=== PATIENT | male | born 1965 | race Hispanic/Latino ===

== ENCOUNTER 2017-10-18 12:33 | Observation (INO) | payer MEDICARE ==
[~2017-10-18] VITALS: Ht 172.7 cm; Wt 86.2 kg
[~2017-10-18 12:33] MED LIST: ACETAMINOPHEN325 M1 PO; ACETAMINOPHEN650 MG RC; DIAZEPAM5 MG PO; FOLIC ACID1 MG PO; FUROSEMIDE40 MG PO; HYDROXYZINE HCL25 MG PO; LEVOTHYROXINE50 MCG PO; OMEPRAZOLE40 MG PO; SPIRONOLACTONE25 MG PO; THIAMINE HCL100 MG PO
[2017-10-18] MEDS ORDERED: DEXTROSE 50% SYRINGE 50 ML IV PRN (12:45)
[2017-10-18] MEDS ORDERED: SODIUM CHLORIDE FLUSH 10 ML SYR INJ PRN (12:45)
[2017-10-18] MEDS ORDERED: SODIUM CHLORIDE 0.9% 250ML 250 ML IV ONE (12:45)
[2017-10-18 14:57] LABS: BASOPHILS % 0.4 % (0.0-1.0); EOSINOPHILS # (AUTO) 0.1 (0.0-0.4); EOSINOPHILS % 1.9 % (0.0-6.0); LYMPHOCYTES # (AUTO) 1.5 (1.0-3.2); MEAN CORPUSCULAR HEMOGLOBIN 25.7 pg (28-32); MEAN CORPUSCULAR HGB CONC 32.2 g/dL (31-35); MEAN CORPUSCULAR VOLUME 79.6 fL (81-99); MONOCYTES # (AUTO) 0.3 (0.2-0.8); NEUTROPHILS # (AUTO) 2.9 (2.1-6.9); NEUTROPHILS % 60.3 % (38.7-80.0); PLATELET COUNT 158 x10e3/uL (140-360); RED BLOOD COUNT 2.69 x10e6/uL (4.3-5.7); RED CELL DISTRIBUTION WIDTH 16.5 % (11.7-14.4)
[2017-10-18 14:59] LABS: HEMATOCRIT 21.4 % (38.2-49.6); HEMOGLOBIN 6.9 g/dL (14.0-18.0)
[2017-10-18 15:06] LABS: INR 1.5
[2017-10-18 15:07] LABS: PARTIAL THROMBOPLASTIN TIME 35.7 seconds (23.8-35.5)
[2017-10-18 15:13] LABS: ALANINE AMINOTRANSFERASE 27 IU/L (0-55); ALBUMIN 3.2 g/dL (3.5-5.0); ALBUMIN/GLOBULIN RATIO 0.7 (0.8-2.0); ALKALINE PHOSPHATASE 197 IU/L (40-150); ANION GAP 11.3 mmol/L (8-16); BLOOD UREA NITROGEN 13 mg/dL (7-26); BUN/CREATININE RATIO 12 (6-25); CALCIUM 9.2 mg/dL (8.4-10.2); CARBON DIOXIDE 20 mmol/L (22-29); CHLORIDE 110 mmol/L (98-107); CREATINE KINASE 300 IU/L (30-200); CREATININE, SERUM 1.09 mg/dL (0.72-1.25); EST GLOMERULAR FILTRATION RATE > 60 ML/MIN (60-); GLUCOSE 140 mg/dL (74-118); POTASSIUM 3.3 mmol/L (3.5-5.1); SODIUM 138 mmol/L (136-145)
[2017-10-18 15:35] LABS: THYROID STIMULATING HORMONE 0.354 uIU/mL (0.350-4.940)
[2017-10-18 16:23] LABS: EOSINOPHILS % (MANUAL) 3 % (0-7); HYPOCHROMASIA SLIGHT; LYMPHOCYTES % (MANUAL) 21 % (19-48); MONOCYTES % (MANUAL) 3 % (3.4-9.0); NEUTROPHILS % (MANUAL) 71 % (40-74); NUCLEATED RED BLOOD CELLS 5; PLATELET ESTIMATE ADEQUATE; PLATELET MORPHOLOGY COMMENT NORMAL; POIKILOCYTOSIS SLIGHT; RBC MORPHOLOGY COMMENT NORMAL
[2017-10-18] MEDS ORDERED: ACETAMINOPHEN 325 MG TAB PO PRN (16:45)
[2017-10-18] MEDS: THIAMINE HCL 100 MG TAB PO SCH (19:28)
[2017-10-18] MEDS: SPIRONOLACTONE 25 MG TAB PO SCH (19:28)
[2017-10-18] MEDS: HYDROXYZINE HCL 25 MG TAB PO SCH (19:28)
[2017-10-18] MEDS: INSULIN REGULAR, HUMAN 100 UNIT/1 ML 3ML VIAL SQ SCH ×2 (19:34→22:20)
[2017-10-18] MEDS ORDERED: SODIUM CHLORIDE 0.9% 250ML 250 ML ONE (20:24)
[2017-10-19 01:08] VITALS: BP 160/87
[2017-10-19 02:19] VITALS: BP 144/72
[2017-10-19] MEDS ORDERED: SODIUM CHLORIDE 0.9% 250ML 250 ML IV ONE (02:30)
[2017-10-19 04:00] VITALS: BP 141/81
[2017-10-19] MEDS ORDERED: LEVOTHYROXINE SODIUM 100 MCG TAB PO SCH (06:00)
[2017-10-19] MEDS: INSULIN REGULAR, HUMAN 100 UNIT/1 ML 3ML VIAL SQ SCH (07:30)
[2017-10-19 08:49] LABS: CLARITY,URINE SL CLOUDY (CLEAR); COLOR,URINE YELLOW (YELLOW)
[2017-10-19 08:50] LABS: BILIRUBIN,URINE NEGATIVE (NEGATIVE); KETONES,URINE NEGATIVE (NEGATIVE); LEUKOCYTE ESTERASE ,URINE NEGATIVE (NEGATIVE); NITRITE,URINE NEGATIVE (NEGATIVE); PROTEIN,URINE DIPSTICK NEGATIVE (NEGATIVE); URINE UROBILINOGEN 0.2 mg/dL (0.2 - 1)
[2017-10-19 08:55] LABS: EPITHELIAL CELLS,URINE RARE /LPF
[2017-10-19] MEDS ORDERED: LEVOTHYROXINE SODIUM 50 MCG TAB PO SCH (09:00)
[2017-10-19] MEDS: SPIRONOLACTONE 25 MG TAB PO SCH (09:00)
[2017-10-19] MEDS ORDERED: PANTOPRAZOLE SOD 40 MG TABEC PO SCH (09:00)
[2017-10-19] MEDS ORDERED: FUROSEMIDE 20 MG TAB PO SCH (09:00)
[2017-10-19] MEDS: THIAMINE HCL 100 MG TAB PO SCH (09:00)
[2017-10-19] MEDS: HYDROXYZINE HCL 25 MG TAB PO SCH (09:00)
[2017-10-19] MEDS ORDERED: FUROSEMIDE 40 MG TAB PO SCH (09:00)
[2017-10-19] MEDS ORDERED: FOLIC ACID 1 MG TAB PO SCH (09:00)
[2017-10-19 09:31] LABS: BASOPHILS % 0.6 % (0.0-1.0); EOSINOPHILS # (AUTO) 0.1 (0.0-0.4); EOSINOPHILS % 2.1 % (0.0-6.0); HEMATOCRIT 28.1 % (38.2-49.6); HEMOGLOBIN 9.5 g/dL (14.0-18.0); LYMPHOCYTES # (AUTO) 1.3 (1.0-3.2); LYMPHOCYTES % 25.8 % (18.0-39.1); MEAN CORPUSCULAR HGB CONC 33.8 g/dL (31-35); MEAN CORPUSCULAR VOLUME 79.8 fL (81-99); MONOCYTES # (AUTO) 0.4 (0.2-0.8); MONOCYTES % 7.4 % (4.4-11.3); NEUTROPHILS # (AUTO) 3.3 (2.1-6.9); NEUTROPHILS % 63.7 % (38.7-80.0); PLATELET COUNT 146 x10e3/uL (140-360); RED BLOOD COUNT 3.52 x10e6/uL (4.3-5.7); RED CELL DISTRIBUTION WIDTH 15.7 % (11.7-14.4)
[2017-10-19 09:48] LABS: ALANINE AMINOTRANSFERASE 25 IU/L (0-55); ALBUMIN/GLOBULIN RATIO 0.7 (0.8-2.0); ALKALINE PHOSPHATASE 196 IU/L (40-150); ANION GAP 11.7 mmol/L (8-16); BLOOD UREA NITROGEN 9 mg/dL (7-26); BUN/CREATININE RATIO 10 (6-25); CALCIUM 9.1 mg/dL (8.4-10.2); CARBON DIOXIDE 22 mmol/L (22-29); CHLORIDE 107 mmol/L (98-107); CREATININE, SERUM 0.93 mg/dL (0.72-1.25); EST GLOMERULAR FILTRATION RATE > 60 ML/MIN (60-); GLUCOSE 187 mg/dL (74-118); POTASSIUM 3.7 mmol/L (3.5-5.1); SODIUM 137 mmol/L (136-145)
[2017-10-19 10:51] LABS: EOSINOPHILS % (MANUAL) 2 % (0-7); LYMPHOCYTES % (MANUAL) 28 % (19-48); MONOCYTES % (MANUAL) 10 % (3.4-9.0); NEUTROPHILS % (MANUAL) 59 % (40-74)
[2017-10-19 10:56] LABS: ANISOCYTOSIS SLIGHT; HYPOCHROMASIA SLIGHT; PLATELET ESTIMATE SLIGHTLY DECREASED; PLATELET MORPHOLOGY COMMENT NORMAL; RBC MORPHOLOGY COMMENT NORMAL
[2017-10-19 12:02] VITALS: BP 140/71
== END 2017-10-19 10:30 | disposition home or self-care (01) ==
LOC: ER 12:33 → ERHOLD 12:44 → INTOOBSV 12:44 → MED/SURG2 10-19 00:24
PROVIDERS: ADMIT Internal Medicine; ATTEND Internal Medicine
PROC: 30233N1 Transfusion of Nonautologous Red Blood Cells into Peripheral Vein, Percutaneous Approach (ICD-10-PCS; principal; 2017-10-18)
DX: D50.0 Iron deficiency anemia secondary to blood loss (chronic) (principal); K74.60 Unspecified cirrhosis of liver; I85.10 Secondary esophageal varices without bleeding
CPT/HCPCS: 36430; P9016; 36415; 80053; 81001; 82550; 82553; 82948; 84443; 84484; 85025; 85610; 85730; 86850; 86900; 86920; 87086; 99284; G0378; J3410; J3411; J7050

== ENCOUNTER 2018-11-27 19:19 | Emergency (ER) | payer MEDICARE, OTHER ==
[~2018-11-27] VITALS: Ht 172.7 cm; Wt 98.0 kg
--- NOTE | 2018-11-27 21:02 | Diagnostic Imaging Report ---
SHOULDER RIGHT COMPLETE - 2 views HISTORY: Pain COMPARISON: None available. FINDINGS: Bones: No acute displaced fracture. Osseous alignment is within normal limits. Joints: The joint spaces are well-maintained. Soft tissues: The soft tissues appear unremarkable. IMPRESSION: No acute radiographic abnormality. Signed by: Dr. Justin Bang MD on 11/27/2018 8:59 PM
[2018-11-27 21:58] VITALS: BP 117/71
== END 2018-11-27 22:00 | disposition home or self-care (01) ==
LOC: ER 19:19
DX: S43.421A Sprain of right rotator cuff capsule, initial encounter (principal); X50.0XXA Overexertion from strenuous movement or load, initial encounter; Y92.007 Garden or yard of unspecified non-institutional (private) residence as the place of occurrence of the external cause; I10 Essential (primary) hypertension; E11.9 Type 2 diabetes mellitus without complications; K76.9 Liver disease, unspecified
CPT/HCPCS: 99283

== ENCOUNTER → 2018-12-14 | Outpatient (CLI) | payer MEDICARE ==
--- NOTE | 2018-12-14 09:20 | Diagnostic Imaging Report ---
EXAM: US ABDOMEN COMPLETE DATE: 12/14/2018 7:46 AM Time stamp on exam: INDICATION: Alcohol at liver damage COMPARISON: None TECHNIQUE: Transverse and longitudinal maher scale and color doppler sonographic images of the upper abdomen were obtained. FINDINGS: LIVER 17.3 cm in the right midclavicular line. Coarsened parenchymal echotexture with nodular external contour. No discrete mass lesion. SPLEEN 15.7 cm in maximum diameter. Normal echogenicity, no masses. GALLBLADDER Collapsed with internal echogenic sludge and mildly thickened wall. Negative sonographic Aragon's sign. BILE DUCTS No intra nor extra-hepatic biliary dilation. Common bile duct measures 0.5 cm PANCREAS: Poorly visualized secondary to overlying bowel gas. RIGHT KIDNEY: 10.2 cm Echogenicity: Normal Collecting System: No hydronephrosis Stones: None Cyst/Mass: None LEFT KIDNEY: 10.6 cm Echogenicity: Normal Collecting System: No hydronephrosis Stones: None Cyst/Mass: None VESSELS: Aorta: Poorly visualized secondary to overlying bowel gas. Inferior Vena Cava: Patent Main Portal Vein: 1.5 cm, increased size with hepatopetal flow. FREE FLUID: None IMPRESSION: Cirrhosis with portal hypertension evidenced by enlargement of the main portal vein and splenomegaly. Gallbladder sludge with wall thickening, likely attributable to collapse and underlying liver disease in the setting of a negative sonographic Aragon sign. Signed by: Dr. Herberth Richard M.D. on 12/14/2018 9:16 AM
== END ==
LOC: US 07:24
PROVIDERS: ATTEND Internal Medicine Gastroenterology
DX: R10.13 Epigastric pain (principal); K70.9 Alcoholic liver disease, unspecified; E11.9 Type 2 diabetes mellitus without complications; Z12.11 Encounter for screening for malignant neoplasm of colon; E66.9 Obesity, unspecified; Z71.3 Dietary counseling and surveillance
CPT/HCPCS: 76700

== ENCOUNTER 2020-01-22 18:56 | Emergency (ER) | payer MEDICARE ==
[~2020-01-22] VITALS: Ht 172.7 cm; Wt 98.0 kg
--- NOTE | 2020-01-22 19:05 | NUR ---
report given to Jono GARY
[2020-01-22 19:27] LABS: BASOPHILS % 0.7 % (0.0-1.0); EOSINOPHILS # (AUTO) 0.1 (0.0-0.4); EOSINOPHILS % 2.7 % (0.0-6.0); HEMATOCRIT 24.1 % (38.2-49.6); HEMOGLOBIN 7.1 g/dL (14.0-18.0); MEAN CORPUSCULAR HGB CONC 29.5 g/dL (31-35); MEAN CORPUSCULAR VOLUME 67.9 fL (81-99); MONOCYTES # (AUTO) 0.3 (0.2-0.8); MONOCYTES % 6.2 % (4.4-11.3); NEUTROPHILS # (AUTO) 2.6 (2.1-6.9); NEUTROPHILS % 65.2 % (38.7-80.0); PLATELET COUNT 150 x10e3/uL (140-360); RED BLOOD COUNT 3.55 x10e6/uL (4.3-5.7); RED CELL DISTRIBUTION WIDTH 17.4 % (11.7-14.4)
[2020-01-22 19:45] LABS: ALBUMIN 3.4 g/dL (3.5-5.0); ALBUMIN/GLOBULIN RATIO 0.9 (0.8-2.0); ANION GAP 13.7 mmol/L (8-16); CALCIUM 8.6 mg/dL (8.4-10.2); CREATININE, SERUM 1.34 mg/dL (0.72-1.25); POTASSIUM 3.7 mmol/L (3.5-5.1)
[2020-01-22 19:51] LABS: CREATINE KINASE MB 2.9 ng/mL (0-5.0)
--- NOTE | 2020-01-22 19:53 | Diagnostic Imaging Report ---
Examination: Single AP view of the chest. COMPARISON: None. INDICATION: Chest pain, cough DISCUSSION: Lines/tubes: None. Lungs: The lungs are well inflated and clear. No pneumonia or pulmonary edema. Pleura: No pleural effusion or pneumothorax. Heart and mediastinum: The heart and the mediastinum are unremarkable. Bones and soft tissues: No acute bony abnormalities. IMPRESSION: 1. No acute cardiopulmonary abnormalities. Signed by: Dr. Alex Brewer M.D. on 01/22/2020 7:49 PM
--- NOTE | 2020-01-22 20:05 | Emergency Department Note ---
History of Present Illnes History of Present Illness Chief Complaint: Chest Pain History of Present Illness This is a 54 year old male arrived to the ED with chest pain that began about 1 hr prior to arrival. Historian: Patient, Bench Inspector/EMS Arrival Mode: [facility] Treatment SORTING MACHINE OPERATOR: IV Additional Treatment SORTING MACHINE OPERATOR: N/A Timing of current episode: constant Progression: unchanged Chronicity: new Relieving factors: none Exacerbating factors: none Past Medical/Family History Physician Review I have reviewed the patient's past medical and family history. Any updates have been documented here. Past Medical History Recent Fever: No Clinical Suspicion of Infectio: No New/Unexplained Change in Ment: No Past Medical History: Hypertension, Diabetes, Liver Disease Other Medical History: ESPHAGEAL VARICES Past Surgical History: Knee Replacement Other Surgery: ORTHOSCOPY FRANCISCO KNEES Social History Smoking Cessation: Never Smoker Counseling Performed: No Alcohol Use: None Any Illegal Drug Use: No Other Last Tetanus: UTD Any Pre-Existing Lines (PICC,: No Review of Systems Review of Systems Constitutional: Reports no symptoms EENTM: Reports no symptoms Cardiovascular: Reports as per HPI, Reports chest pain Respiratory: Reports no symptoms Gastrointestinal: Reports no symptoms Genitourinary: Reports no symptoms Musculoskeletal: Reports no symptoms Integumentary: Reports no symptoms Neurological: Reports no symptoms Psychological: Reports no symptoms Endocrine: Reports no symptoms Hematological/Lymphatic: Reports no symptoms Physical Exam Related Data Allergies: Coded Allergies: Anesthetics - [place] Type- Parabens (Verified Allergy, Severe, MALIGNANT HYPOTHERMIA, 10/15/16) Iodinated Contrast Media (Verified Allergy, Mild, SKIN RASH, 10/18/17) succinylcholine (Verified Allergy, Unknown, MALIGNANT HYPOTHERMIA, 10/15/16) Triage Vital Signs Vital Signs Date Time Temp Pulse Resp B/P (MAP) Pulse Ox O2 Delivery O2 Flow Rate FiO2 01/22/20 19:01 98.2 84 19 124/73 100 Room Air Vital signs reviewed: Yes Physical Exam CONSTITUTIONAL Constitutional: Present well-developed, Present well-nourished HENT HENT: Present normocephalic, Present atraumatic, Present oropharynx clear/moist, Present nose normal HENT L/R: Present left ext ear normal, Present right ext ear normal EYES Eyes: Reports PERRL, Reports conjunctivae normal NECK Neck: Present ROM normal PULMONARY Pulmonary: Present effort normal, Present breath sounds normal CARDIOVASCULAR Cardiovascular: Present regular rhythm, Present heart sounds normal, Present capillary refill normal, Present normal rate, Present other (reproducible chest pain) GASTROINTESTINAL Abdominal: Present soft, Present nontender, Present bowel sounds normal GENITOURINARY Genitourinary: Present exam deferred SKIN Skin: Present warm, Present dry MUSCULOSKELETAL Musculoskeletal: Present ROM normal NEUROLOGICAL Neurological: Present alert, Present oriented x 3, Present no gross motor or sensory deficits PSYCHOLOGICAL Psychological: Present mood/affect normal, Present judgement normal Results Laboratory Result Diagram: 01/22/20 7203 Laboratory Laboratory Tests Test 01/22/20 19:05 White Blood Count 4.04 x10e3/uL (4.8-10.8) Red Blood Count 3.55 x10e6/uL (4.3-5.7) Hemoglobin 7.1 g/dL (14.0-18.0) Hematocrit 24.1 % (38.2-49.6) Mean Corpuscular Volume 67.9 fL (81-99) Mean Corpuscular Hemoglobin 20.0 pg (28-32) Mean Corpuscular Hemoglobin Concent 29.5 g/dL (31-35) Red Cell Distribution Width 17.4 % (11.7-14.4) Platelet Count 150 x10e3/uL (140-360) Neutrophils (%) (Auto) 65.2 % (38.7-80.0) Lymphocytes (%) (Auto) 25.0 % (18.0-39.1) Monocytes (%) (Auto) 6.2 % (4.4-11.3) Eosinophils (%) (Auto) 2.7 % (0.0-6.0) Basophils (%) (Auto) 0.7 % (0.0-1.0) Neutrophils # (Auto) 2.6 (2.1-6.9) Lymphocytes # (Auto) 1.0 (1.0-3.2) Monocytes # (Auto) 0.3 (0.2-0.8) Eosinophils # (Auto) 0.1 (0.0-0.4) Basophils # (Auto) 0.0 (0.0-0.1) Absolute Immature Granulocyte (auto 0.01 x10e3/uL (0-0.1) Lab results reviewed: Yes Imaging Imaging results reviewed: Yes Procedures 12 Lead ECG Interpretation ECG Interpretation : ECG: ECG 1 Ore Digger: Interpreted by ED physician Prior ECG tracings: reviewed Rhythm: sinus rhythm Rate: tachycardia QRS axis: left Conduction: left bundle branch block ST segments normal: Yes T waves normal: Yes Clinical Impression: non-specific ECG Assessment & Plan Medical Decision Making MDM 54-year-old male arrives to the ED with chest pain that began 1 hour prior to arrival. Patient with intermediary heart score. EKG initial cardiac markers were normal the given risk factors encouraged patient for hospital admission which she did not want to at this time. Patient was discharged home encouraged repeat visit when necessary. Patient given cardiology referral as an outpatient. Assessment & Plan Final Impression: (1) Chest pain Depart Disposition: HOME, SELF-CARE Last Vital Signs Date Time Temp Pulse Resp B/P (MAP) Pulse Ox O2 Delivery O2 Flow Rate FiO2 01/22/20 19:28 98.6 82 18 124/73 100 Room Air Home Meds Reported Medications Thiamine Hcl (THIAMINE HCL) 100 Mg Tablet, 100 MG PO BID, #30 TAB 01/09/17 Furosemide (FUROSEMIDE) 40 Mg Tablet, 20 MG PO Daily, #30 TAB 10/15/16 Spironolactone (SPIRONOLACTONE) 25 Mg Tablet, 25 MG PO BID, #60 TAB 10/15/16 Folic Acid (FOLIC ACID) 1 Mg Tablet, 1 MG PO DAILY, #30 TAB 10/15/16 Levothyroxine Sodium (LEVOTHYROXINE SODIUM) 50 Mcg Tablet, 100 MCG PO DAILY, #30 TAB 10/15/16 Omeprazole (OMEPRAZOLE) 40 Mg Capsule., 40 MG PO DAILY 10/15/16 JEVON CHUNG DO Jan 22, 2020 20:06
[2020-01-22 20:27] LABS: CLARITY,URINE CLEAR (CLEAR); COLOR,URINE YELLOW (YELLOW)
[2020-01-22 20:28] LABS: BILIRUBIN,URINE NEGATIVE (NEGATIVE); KETONES,URINE NEGATIVE (NEGATIVE); LEUKOCYTE ESTERASE ,URINE NEGATIVE (NEGATIVE); NITRITE,URINE NEGATIVE (NEGATIVE); PROTEIN,URINE DIPSTICK NEGATIVE (NEGATIVE); URINE UROBILINOGEN 0.2 mg/dL (0.2 - 1)
--- NOTE | 2020-01-22 21:00 | NUR ---
pt requesting to go home. pt states that does not want to wait for repeat cardiac enzymes that are ordered for 2299. informed. ordered to draw enzymes now. blood drawn at this time and sent to lab.
[2020-01-22] MEDS ORDERED: ASPIRIN 81 MG CHEW TAB PO ONE (21:45)
--- OUTSIDE RECORDS SUMMARY | 2020-01-22 22:01 | XMS REPORT | Continuity of Care Document ---
Author Author [facility] Organization [facility] Address [address] [place] [address] Phone Unavailable Care Team Providers Care Mechanical Press Operator Name Role Phone LEONIDES ALVARADO, JEFFERY PCP Yoni CHUNG Attphys Unavailable NESS, V SVETANG Attphys Unavailable SWEET, A LAIRD Attphys Unavailable Payers Payer Name Policy Type Policy Number Effective Date Expiration Date Yoni kurt [facility] [id number] [facility] [employer] Medicare Advantage [id number] 2017 00:00:00 [facility] Problems Condition Name Condition Details Condition Category Status Onset Date Resolution Date Last Treatment Date Treating Clinician Comments Source Alcohol abuse Alcohol abuse Problem Active [facility] Anemia Anemia Problem Active [facility] Chest pain Chest pain Problem Active [facility] Alcoholic cirrhosis Cirrhosis, alcoholic Problem Active [facility] Gastrointestinal hemorrhage Gastrointestinal bleed Problem Active [facility] Syncope Syncope Problem Active [facility] At high risk for cardiac arrhythmia At high risk for cardiac arr hythmia Problem Active [facility] Allergies, Adverse Reactions, Alerts Allergy Name Allergy Type Status Severity Reaction(s) Onset Date Inacti ve Date Treating Clinician Comments Source Iodinated Contrast- Oral and IV Dye DA Active [place] 2 00:00:00 [facility] Iodinated Contrast- Oral and IV Dye Allergy to Substance Active M ild SKIN RASH 2017-10-18 00:00:00 [facility] [place] Type- Parabens Allergy to Substance Active Severe MALIGNANT HYPOTHERMIA 2016-10-15 00:00:00 [facility] Succinylcholine Allergy to Substance Active MALIGNANT HYPOTHERMIA 2016-10-15 00:00:00 [facility] iodine DA Active U 2016-10-14 00:00:00 [facility] CONTRAST DA Active [place] 2016-07-22 00:00:00 [facility] Medications Ordered Medication Name Filled Medication Name Start Date Stop Da te Current Medication? Ordering Clinician Indication Dosage Frequency Signature (SIG) Comments Components Source Folic Acid 1 Mg Tablet Folic Acid 1 Mg Tablet Yes 1 Daily [facility] Furosemide 40 Mg Tablet Furosemide 40 Mg Tablet Yes 20 Daily [facility] Levothyroxine Sodium 50 Mcg Tablet Levothyroxine Sodium 50 Mcg Tablet Yes 100 Daily [facility] Omeprazole 40 Mg Capsule. Omeprazole 40 Mg Capsule. Yes 40 Daily [facility] Spironolactone 25 Mg Tablet Spironolactone 25 Mg Tablet Yes 25 Twice A Day [facility] Thiamine Hcl 100 Mg Tablet Thiamine Hcl 100 Mg Tablet Yes 100 Twice A Day [facility] Acetaminophen 325 Mg Tablet, 650 Mg Oral Acetaminophen 325 Mg Tablet, 650 Mg Oral 2017-10-19 00:00:00 No 650 Every 6 Hours as n eeded for Pain [facility] Hydroxyzine Hcl 25 Mg Tablet, 50 Mg Oral Hydroxyzine H cl 25 Mg Tablet, 50 Mg Oral 2017-10-18 00:00:00 No 50 Twice A Day [facility] Diazepam 5 Mg Tablet, 5 Mg Oral Diazepam 5 Mg Tablet, 5 Mg Oral 2017-01-09 00:00:00 No 5 Twice A Day [facility] Procedures This patient has no known procedures. Encounters Start Date/Time End Date/Time Encounter Type [facility]counter ID Source 2018-11-27 19:19:00 2018-11-27 22:00:00 Departed Emergency Room 1 DOROTHY HANEY [facility] [id number] [facility] 2017-10-18 12:44:00 2017-10-19 10:30:00 Discharged Inpatient (obs) [facility] [id number] [facility] 2017-01-09 20:38:00 2017-01-10 13:53:00 Discharged Inpatient [facility] [id number] [facility] Results Test Description Test Time Test Comments Results Result Comments Source CHEST SINGLE (PORTABLE) 2020-01-22 19:48:00 [facility] [address] [place] [address] Patient Name: TAI SANTIAGO MR #: [id number] : 1965 Age/Sex: 54/M Req #: [id number] Adm Physician: Ordered by: JEVON CHUNG DO Report #: [id number] Location: ER Room/Bed: Procedure: [id number] DX/CHEST SINGLE (PORTABLE) Exam Date: 01/22/20 Exam Time: 1910 REPORT STATUS: Signed Examination: Single AP view of the chest. COMPARISON: None. INDICATION: Chest pain, cough DISCUSSION: Lines/tubes: None. Lungs: The lungs are well inflated and clear. No pneumonia or pulmonary edema. Pleura: No pleural effusion or pneumothorax. Heart and mediastinum: The heart and the mediastinum are unremarkable. Bones and soft tissues: No acute bony abnormalities. IMPRESSION: 1. No acute cardiopulmonary abnormalities. Signed by: Dr. Shira Irby M.D. on 01/22/2020 7:49 PM Dictated By: SHIRA IRBY MD 1947 Transcribed By: JASMYNE on 01/22/201948 COPY TO: JEVON CHUNG DO BASIC METABOLIC PANEL 2019-01-20 14:57:00 Test Item SODIUM (test code = NA) 137 mEq/L 134-147 N POTASSIUM (test code = K) 4.0 mEq/L 3.4-5.0 N CHLORIDE (test code = CL) 103 mEq/L 100-108 N CARBON DIOXIDE (test code = CO2) 28 mEq/L 21-33 N ANION GAP (test code = GAP) 10 0-20 N GLUCOSE (test code = GLU) 228 mg/dL 70-110 H BLOOD UREA NITROGEN (test code = BUN) 15 mg/dL 7-18 N GLOMERULAR FILTRATION RATE (test code = GFR) 63.8 90-95 L Units of measure = ml/min/1.73 m2 CREATININE (test code = CREAT) 1.2 mg/dL 0.6-1.3 N CALCIUM (test code = CA) 9.1 mg/dL 8.0-10.5 N PROTHROMBIN [id number] 14:49:00* Test Item Value Reference Range Interpretation Comments PROTHROMBIN TIME PATIENT (test code = PTP) 14.3 SECONDS 9.3-12.9 H INTERNATIONAL NORMAL RATIO (test code = INR) 1.3 0.8-1.2 H TARGET INR BY INDICATION Indication INR1. Prophylaxis of venous thrombosis 2.0 - 3.0 (orthopedic surgery), Prophylaxis of venous thrombosis (other than high-risk surgery), Treatment of Deep Vein Thrombosis/Pulmonary Embolism, Prevention of systemic embolism - Tissue heart valves, Acute Myocardial Infarction (to prevent systemic embolism), Valvular heart disease, Atrial Fibrillation, Bileaflet mechanical valve in aortic position.2. Mechanical prosthetic valves (high risk), 2.5 - 3.5 Presence of Lupus Anticoagulant or Antiphospholipid Antibodies, Prevention of systemic embolism - Acute Myocardial Infarction (to prevent recurrent infarct). THROMBOPLASTIN TIME [id number] 14:49:00* Test Item Value Reference Range Interpretation Comments THROMBOPLASTIN TIME PARTIAL (test code = PTT) 36.6 Seconds 25.0-39. 5 N Therapeutic Range: 50.4 - 88.3 Seconds Effective 10/04/2018 CBC W/AUTO [id number] 14:30:00* Test Item Value Reference Range Interpretation Comments WHITE BLOOD CELL (test code = WBC) 4.94 x10 3/uL 4.5-11.0 N RED BLOOD CELL (test code = RBC) 4.27 x10 6/uL 4.00-5.60 N HEMOGLOBIN (test code = HGB) 11.1 g/dL 12.5-16.9 L HEMATOCRIT (test code = HCT) 34.5 % 37.5-50.7 L MEAN CELL VOLUME (test code = MCV) 80.8 fL 81.0-99.0 L MEAN CELL HGB (test code = MCH) 26.0 pg 27.0-33.0 L MEAN CELL HGB CONCETRATION (test code = MCHC) 32.2 g/dL 33.0-37. 0 L RED CELL DISTRIBUTION WIDTH CV (test code = RDW) 15.2 % 11.5- 14.5 H RED CELL DISTRIBUTION WIDTH SD (test code = RDW-SD) 44.0 fL 37 .0-54.0 N PLATELET COUNT (test code = PLT) 148 x10 3/uL 150-400 L MEAN PLATELET VOLUME (test code = MPV) 10.3 fL 7.0-9.0 H NEUTROPHIL % (test code = NT%) 66.2 % 56.0-77.0 N IMMATURE GRANULOCYTE % (test code = IG%) 0.4 % 0.0-2.0 N LYMPHOCYTE % (test code = LY%) 24.5 % 14.0-32.0 N MONOCYTE % (test code = MO%) 6.1 % 4.8-9.0 N EOSINOPHIL % (test code = EO%) 2.2 % 0.3-3.7 N BASOPHIL % (test code = BA%) 0.6 % 0.0-2.0 N NUCLEATED RBC % (test code = NRBC%) 0.0 % 0-0 N NEUTROPHIL # (test code = NT#) 3.27 x10 3/uL 2.0-7.6 N IMMATURE GRANULOCYTE # (test code = IG#) 0.02 x10 3/uL 0.00-0.03 N LYMPHOCYTE # (test code = LY#) 1.21 x10 3/uL 1.0-3.8 N MONOCYTE # (test code = MO#) 0.30 x10 3/uL 0.1-0.8 N EOSINOPHIL # (test code = EO#) 0.11 x10 3/uL 0.0-0.2 N BASOPHIL # (test code = BA#) 0.03 x10 3/uL 0.0-0.2 N NUCLEATED RBC # (test code = NRBC#) 0.00 x10 3/uL 0.0-0.1 N MANUAL DIFF REQUIRED (test code = MDIFF) NO [id number] 10:51:00* Test Item Value Reference Range Interpretation Comments GLUBED (test code = GLUBED) 154 MG/DL 70-110 H Performed by certified soft work cigar machine operator at [facility] [id number] 08:38:00* Test Item Value Reference Range Interpretation Comments GLUBED (test code = GLUBED) 143 MG/DL 70-110 H Performed by certified soft work cigar machine operator at [facility] BASIC METABOLIC [id number] 07:05:00* Test Item Value Reference Range Interpretation Comments SODIUM (test code = NA) 137 mEq/L 134-147 N POTASSIUM (test code = K) 3.9 mEq/L 3.4-5.0 N CHLORIDE (test code = CL) 106 mEq/L 100-108 N CARBON DIOXIDE (test code = CO2) 22 mEq/L 21-33 N ANION GAP (test code = GAP) 13 0-20 N GLUCOSE (test code = GLU) 162 mg/dL 70-110 H BLOOD UREA NITROGEN (test code = BUN) 15 mg/dL 7-18 N GLOMERULAR FILTRATION RATE (test code = GFR) 63.8 90-95 L Units of measure = ml/min/1.73 m2 CREATININE (test code = CREAT) 1.2 mg/dL 0.6-1.3 N CALCIUM (test code = CA) 8.7 mg/dL 8.0-10.5 N BASIC METABOLIC [id number] 15:14:00* Test Item Value Reference Range Interpretation Comments SODIUM (test code = NA) 135 mEq/L 134-147 N POTASSIUM (test code = K) 3.8 mEq/L 3.4-5.0 N CHLORIDE (test code = CL) 104 mEq/L 100-108 N CARBON DIOXIDE (test code = CO2) 25 mEq/L 21-33 N ANION GAP (test code = GAP) 10 0-20 N GLUCOSE (test code = GLU) 153 mg/dL 70-110 H BLOOD UREA NITROGEN (test code = BUN) 17 mg/dL 7-18 N GLOMERULAR FILTRATION RATE (test code = GFR) 63.8 90-95 L Units of measure = ml/min/1.73 m2 CREATININE (test code = CREAT) 1.2 mg/dL 0.6-1.3 N CALCIUM (test code = CA) 8.8 mg/dL 8.0-10.5 N PROTHROMBIN [id number] 15:03:00* Test Item Value Reference Range Interpretation Comments PROTHROMBIN TIME PATIENT (test code = PTP) 14.7 SECONDS 9.3-12.9 H INTERNATIONAL NORMAL RATIO (test code = INR) 1.3 0.8-1.2 H TARGET INR BY INDICATION Indication INR1. Prophylaxis of venous thrombosis 2.0 - 3.0 (orthopedic surgery), Prophylaxis of venous thrombosis (other than high-risk surgery), Treatment of Deep Vein Thrombosis/Pulmonary Embolism, Prevention of systemic embolism - Tissue heart valves, Acute Myocardial Infarction (to prevent systemic embolism), Valvular heart disease, Atrial Fibrillation, Bileaflet mechanical valve in aortic position.2. Mechanical prosthetic valves (high risk), 2.5 - 3.5 Presence of Lupus Anticoagulant or Antiphospholipid Antibodies, Prevention of systemic embolism - Acute Myocardial Infarction (to prevent recurrent infarct). THROMBOPLASTIN TIME [id number] 15:03:00* Test Item Value Reference Range Interpretation Comments THROMBOPLASTIN TIME PARTIAL (test code = PTT) 36.1 Seconds 25.0-39. 5 N Therapeutic Range: 50.4 - 88.3 Seconds Effective 10/04/2018 CBC W/AUTO [id number] 14:42:00* Test Item Value Reference Range Interpretation Comments WHITE BLOOD CELL (test code = WBC) 4.85 x10 3/uL 4.5-11.0 N RED BLOOD CELL (test code = RBC) 4.18 x10 6/uL 4.00-5.60 N HEMOGLOBIN (test code = HGB) 11.0 g/dL 12.5-16.9 L HEMATOCRIT (test code = HCT) 34.0 % 37.5-50.7 L MEAN CELL VOLUME (test code = MCV) 81.3 fL 81.0-99.0 N MEAN CELL HGB (test code = MCH) 26.3 pg 27.0-33.0 L MEAN CELL HGB CONCETRATION (test code = MCHC) 32.4 g/dL 33.0-37. 0 L RED CELL DISTRIBUTION WIDTH CV (test code = RDW) 14.6 % 11.5- 14.5 H RED CELL DISTRIBUTION WIDTH SD (test code = RDW-SD) 43.0 fL 37 .0-54.0 N PLATELET COUNT (test code = PLT) 143 x10 3/uL 150-400 L MEAN PLATELET VOLUME (test code = MPV) 10.8 fL 7.0-9.0 H NEUTROPHIL % (test code = NT%) 62.5 % 56.0-77.0 N IMMATURE GRANULOCYTE % (test code = IG%) 0.2 % 0.0-2.0 N LYMPHOCYTE % (test code = LY%) 27.8 % 14.0-32.0 N MONOCYTE % (test code = MO%) 6.6 % 4.8-9.0 N EOSINOPHIL % (test code = EO%) 2.3 % 0.3-3.7 N BASOPHIL % (test code = BA%) 0.6 % 0.0-2.0 N NUCLEATED RBC % (test code = NRBC%) 0.0 % 0-0 N NEUTROPHIL # (test code = NT#) 3.03 x10 3/uL 2.0-7.6 N IMMATURE GRANULOCYTE # (test code = IG#) 0.01 x10 3/uL 0.00-0.03 N LYMPHOCYTE # (test code = LY#) 1.35 x10 3/uL 1.0-3.8 N MONOCYTE # (test code = MO#) 0.32 x10 3/uL 0.1-0.8 N EOSINOPHIL # (test code = EO#) 0.11 x10 3/uL 0.0-0.2 N BASOPHIL # (test code = BA#) 0.03 x10 3/uL 0.0-0.2 N NUCLEATED RBC # (test code = NRBC#) 0.00 x10 3/uL 0.0-0.1 N MANUAL DIFF REQUIRED (test code = MDIFF) NO - XR CHEST 2 [id number] 14:34:00 FAX: Ayanna Carrillo [facility]- [phone] [place]: St: PRE FAX: Israel Fall MD [phone] FAX: Jeffery Polanco MD [phone] Name: TAI SANTIAGO [facility] : 1965 Age/S: 53/M [address] [place] [address] Blvd Unit #: [id number] Loc: [place] [id number] Phys: Ayanna Da Silva Acct: [id number] Dis Date: Status: PRE SDC PH ONE #: [phone] Exam Date: 12/28/2018 1429 FAX #: [phone] Reason: CIRRHOSIS EXAMS: CPT CODE: [id number] XR CHEST 2 V 16943 CHEST RADIOGRA PHS - PA AND LATERAL: COMPARISON: October 14, 2016 CL INICAL HISTORY: CIRRHOSIS The cardiopericardial silhouette is with in normal limits. Lungs are clear. No vascular con gestion or pneumothorax. IMPRESSION: No acut e pulmonary abnormality. at 143 Reported and signed by: Carlos Alberto edmond M.D. CC: Ayanna Da Silva; Israel Ness MD; Ivelisse Chao M.D. Technologist: Jeanette Velázquez RT(R)(M) Trnscrd Date/Time/By: 12/28/2018 (6077) : By: [email or web address] Orig Print D/T : S: 12/28/2018 (0104) PAGE 1 Sig rufino Report US ABDOMEN [id number] 09:10:00 [place] [address] Patient Name: TAI SANTIAGO MR #: [id number] : 1965 Age/Sex: 53/M Req #: [id number] Adm Physician: Ordered by: ISRAEL NESS MD Report #: [id number] Location: Room/Bed: Procedure: [id number] US/ US ABDOMEN COMPLETE Exam Date: 12/14/18 Exam Time: 0 758 REPORT STATUS: Signed EXAM: US ABDOMEN COMPLETE DATE: 12/14/2018 7:46 AM Time stamp on exam: INDICAT ION: Alcohol at liver damage COMPARISON: None TECHNIQUE: Transverse and l ongitudinal maher scale and color doppler sonographic images of the upper abdom en were obtained. FINDINGS: LIVER 17.3 cm in the right midclavicu lar line. Coarsened parenchymal echotexture with nodular external contour. No discrete mass lesion. SPLEEN 15.7 cm in maximum diameter. Normal echo genicity, no masses. GALLBLADDER Collapsed with internal echogenic sludge and mildly thickened wall. Negative sonographic Aragon's sign. BILE DUCTS No intra nor extra-hepatic biliary dilation. Common bile duct measures 0.5 cm PANCREAS: Poorly visualized secondary to overlying bowel gas. RIGHT KIDNEY: 10.2 cm Echogenicity: Normal Collecting System: No hydronephrosis Stones: None Cyst/Mass: None LEFT KIDNEY: 10.6 cm Echogenicity: Normal Collecting System: No hydronephrosis Stones: None Cyst/Mass: None VESSELS: Aorta: Poorly visualized secondary to overlying bowel gas. Inferior Vena Cava: Patent Main Portal Vein: 1.5 cm, increased size with hepatopetal flow. FREE FLUID: None IMPRESSION: Cirrhosis with portal hypertens ion evidenced by enlargement of the main portal vein and splenomegaly. Ga llbladder sludge with wall thickening, likely attributable to collapse and und erlying liver disease in the setting of a negative sonographic Aragon sign. Signed by: Dr. Madelin Richard M.D. on 12/14/2018 9:16 AM Dictated By: NAI RICHARD MD 5 Maldonado scribed By: JASMYNE on 12/14/18915 COPY TO: ISRAEL NESS MD SHOULDER RIGHT [id number] 20:59:00 [place] [address] Patient Name: TAI SANTIAGO MR #: [id number] : 1965 Age/Sex: 53/M Req #: [id number] Adm Physician: Ordered by: DOROTHY HANEY MD Report #: [id number] Location: ER Room/Bed: Procedure: [id number] DX/ JENIFERLDLEX RIGHT COMPLETE Exam Date: 11/27/18 Exam Time: 2035 REPORT STATUS: Signed SHOAvi LDER RIGHT COMPLETE - 2 views HISTORY: Pain COMPARISON: None available. FINDINGS: Bones: No acute displaced fracture. Osseous alignment is within normal limits. Joints: The joint spaces are well-maintained. Soft tissues: The soft tissues appear unremarkable. IMPRESSION: No acute radiographic abnormality. Signed by: Dr. Justin Stevens MD on 11/27/2018 8:59 PM Dictated By: JUSTIN STEVENS MD 58 Transcribed By: JASMYNE on 11/27/182058 COPY TO: DOROTHY HANEY MD Bedside [id number] 11:43:00* Test Item Value Reference Range Interpretation Comments Bedside Glucose (test code = 26962-2) 193 70-120 H Meter ID: [id number] Scott & [facility] Budafferential Total Cells [id number] 10:56:00* Test Item Value Reference Range Interpretation Comments Differential Total Cells Counted (test code = Lyubov bunn Total Cells Counted) 100 [facility]udaNeutrophils % (Manual)2017-10-19 10:56:00 * Test Item Value Reference Range Interpretation Comments Neutrophils % (Manual) (test code = 20697-3) 59 40-74 [facility]udaLymphocytes % (Manual)2017-10-19 10:56:00 * Test Item Value Reference Range Interpretation Comments Lymphocytes % (Manual) (test code = 737-7) 28 19-48 [facility]udaMonocytes % (Manual)2017-10-19 10:56:00* Test Item Value Reference Range Interpretation Comments Monocytes % (Manual) (test code = 744-3) 10 3.4-9.0 H [facility]udaEosinophils % (Manual)2017-10-19 10:56:00 * Test Item Value Reference Range Interpretation Comments Eosinophils % (Manual) (test code = 714-6) 2 0-7 [facility] BudaReactive [id number] 10:56:00* Test Item Value Reference Range Interpretation Comments Reactive Lymphocytes (test code = 25803-5) 1 [facility] BudaPlatelet [id number] 10:56:00* Test Item Value Reference Range Interpretation Comments Platelet Estimate (test code = 66007-4) SLIGHTLY DECREASED [facility] BudaPlatelet Morphology [id number] 10:56:00* Test Item Value Reference Range Interpretation Comments Platelet Morphology Comment (test code = 17927-3) NORMAL [facility] BudaHypochromasia2018-05-01 10:56:00* Test Item Value Reference Range Interpretation Comments Hypochromasia (test code = 728-6) SLIGHT [facility] BudaAnisocytosis2018-05-01 10:56:00* Test Item Value Reference Range Interpretation Comments Anisocytosis (test code = 702-1) SLIGHT [facility] BudaRed Cell Morphology [id number] 10:56:00* Test Item Value Reference Range Interpretation Comments Red Cell Morphology Comment (test code = 6742-1) [facility]AL [facility] [id number] 09:50:00* Test Item Value Reference Range Interpretation Comments Sodium Level (test code = 2951-2) 137 136-145 [facility]udaPotassium [id number] 09:50:00* Test Item Value Reference Range Interpretation Comments Potassium Level (test code = 2823-3) 3.7 3.5-5.1 [facility] BudaChloride [id number] 09:50:00* Test Item Value Reference Range Interpretation Comments Chloride Level (test code = 2075-0) 107 98-107 [facility] BudaCarbon Dioxide [id number] 09:50:00* Test Item Value Reference Range Interpretation Comments Carbon Dioxide Level (test code = 2028-9) 22 22-29 [facility] BudaAnion [id number] 09:50:00* Test Item Value Reference Range Interpretation Comments Anion Gap (test code = 31834-2) 11.7 8-16 [facility] BudaBlood Urea [id number] 09:50:00* Test Item Value Reference Range Interpretation Comments Blood Urea Nitrogen (test code = 3094-0) 9 7-26 [facility] BudaCreatinine2018-05-01 09:50:00* Test Item Value Reference Range Interpretation Comments Creatinine (test code = 2160-0) 0.93 0.72-1.25 [facility] BudaBUN/Creatinine [id number] 09:50:00* Test Item Value Reference Range Interpretation Comments BUN/Creatinine Ratio (test code = 3097-3) 10 6-25 [facility] BudaEstimat Glomerular Filtration Rate 2017-10-19 09:50:00* Test Item Value Reference Range Interpretation Comments Estimat Glomerular Filtration Rate (test code = 11473-0) 60- >60 Ranges were taken from the National Kidney Disease Education Program and the [place] [facility] literature.Reference ranges:60 or greater: Xwymrc80-02 ( for 3 consecutive months): Chronic kidney disease 15 or less: Kidney failureBaylor Scott & White Medical Center – BudaGlucose Gumbo0489-64-55 09:50:00* Test Item Value Reference Range Interpretation Comments Glucose Level (test code = HWO6291) 187 74-118 H [facility] BudaCalcium Tjtqm3591-57-62 09:50:00* Test Item Value Reference Range Interpretation Comments Calcium Level (test code = 66593-5) 9.1 8.4-10.2 [facility] BudaTotal Fnmetekci7488-58-49 09:50:00* Test Item Value Reference Range Interpretation Comments Total Bilirubin (test code = 1975-2) 1.2 0.2-1.2 [facility] BudaAspartate Amino Transf (AST/SGOT) 2017-10-19 09:50:00* Test Item Value Reference Range Interpretation Comments Aspartate Amino Transf (AST/SGOT) (test code = Aspartate Amino Transf (AST/SGOT)) 41 5-34 H [facility] BudaAlanine Aminotransferase (ALT/SGPT) 2017-10-19 09:50:00* Test Item Value Reference Range Interpretation Comments Alanine Aminotransferase (ALT/SGPT) (test code = 1742-6) 25 0-55 [facility] Rpnnasu8009-70-14 09:50:00* Test Item Value Reference Range Interpretation Comments Total Protein (test code = 2885-2) 7.6 6.5-8.1 [facility] BudaAlbumin2018-05-01 09:50:00* Test Item Value Reference Range Interpretation Comments Albumin (test code = 1751-7) 3.0 3.5-5.0 L [facility] BudaGlobulin2018-05-01 09:50:00* Test Item Value Reference Range Interpretation Comments Globulin (test code = 85351-3) 4.6 2.3-3.5 H [facility] BudaAlbumin/Globulin Xseke1297-73-93 09:50:00 * Test Item Value Reference Range Interpretation Comments Albumin/Globulin Ratio (test code = 1759-0) 0.7 0.8-2.0 L [facility] BudaAlkaline Elqembnladi3206-32-23 09:50:00* Test Item Value Reference Range Interpretation Comments Alkaline Phosphatase (test code = 6768-6) 196 40-150 H [facility] BudaWhite Blood Hspym7726-54-23 09:34:00* Test Item Value Reference Range Interpretation Comments White Blood Count (test code = 6690-2) 5.16 4.8-10.8 [facility] BudaRed Blood Njqkk9460-32-39 09:34:00* Test Item Value Reference Range Interpretation Comments Red Blood Count (test code = 789-8) 3.52 4.3-5.7 L [facility] BudaHemoglobin2018-05-01 09:34:00* Test Item Value Reference Range Interpretation Comments Hemoglobin (test code = 13320-1) 9.5 14.0-18.0 L [facility] BudaHematocrit2018-05-01 09:34:00* Test Item Value Reference Range Interpretation Comments Hematocrit (test code = 4544-3) 28.1 38.2-49.6 L [facility] BudaMean Corpuscular [id number] 09:34:00* Test Item Value Reference Range Interpretation Comments Mean Corpuscular Volume (test code = 787-2) 79.8 81-99 L [facility] BudaMean Corpuscular Xwcjfbhaem1732-96-06 09:34:00* Test Item Value Reference Range Interpretation Comments Mean Corpuscular Hemoglobin (test code = 785-6) 27.0 28-32 L [facility] BudaMean Corpuscular Hemoglobin Concent 2017-10-19 09:34:00* Test Item Value Reference Range Interpretation Comments Mean Corpuscular Hemoglobin Concent (test code = 786-4) 33.8 31-35 [facility]udaRed Cell Distribution Kqtss0430-43-15 09:34:00* Test Item Value Reference Range Interpretation Comments Red Cell Distribution Width (test code = 94594-5) 15.7 11.7 -14.4 H [facility] BudaPlatelet Iqdvz1689-91-96 09:34:00* Test Item Value Reference Range Interpretation Comments Platelet Count (test code = 777-3) 146 140-360 [facility] BudaNeutrophils (%) (Auto)2017-10-19 09:34:00 * Test Item Value Reference Range Interpretation Comments Neutrophils (%) (Auto) (test code = 45524-5) 63.7 38.7-80.0 [facility] BudaLymphocytes (%) (Auto)2017-10-19 09:34:00 * Test Item Value Reference Range Interpretation Comments Lymphocytes (%) (Auto) (test code = 736-9) 25.8 18.0-39.1 [facility] BudaMonocytes (%) (Auto)2017-10-19 09:34:00* Test Item Value Reference Range Interpretation Comments Monocytes (%) (Auto) (test code = 5905-5) 7.4 4.4-11.3 [facility]udaEosinophils (%) (Auto)2017-10-19 09:34:00 * Test Item Value Reference Range Interpretation Comments Eosinophils (%) (Auto) (test code = 713-8) 2.1 0.0-6.0 [facility] BudaBasophils (%) (Auto)2017-10-19 09:34:00* Test Item Value Reference Range Interpretation Comments Basophils (%) (Auto) (test code = 706-2) 0.6 0.0-1.0 [facility] BudaIM GRANULOCYTES %2017-10-19 09:34:00* Test Item Value Reference Range Interpretation Comments IM GRANULOCYTES % (test code = IM GRANULOCYTES %) 0.4 0.0- 1.0 [facility] BudaNeutrophils # (Auto)2017-10-19 09:34:00* Test Item Value Reference Range Interpretation Comments Neutrophils # (Auto) (test code = 751-8) 3.3 2.1-6.9 [facility] BudaLymphocytes # (Auto)2017-10-19 09:34:00* Test Item Value Reference Range Interpretation Comments Lymphocytes # (Auto) (test code = 51279-3) 1.3 1.0-3.2 [facility] BudaMonocytes # (Auto)2017-10-19 09:34:00* Test Item Value Reference Range Interpretation Comments Monocytes # (Auto) (test code = 742-7) 0.4 0.2-0.8 [facility]udaEosinophils # (Auto)2017-10-19 09:34:00* Test Item Value Reference Range Interpretation Comments Eosinophils # (Auto) (test code = 711-2) 0.1 0.0-0.4 [facility]udaBasophils # (Auto)2017-10-19 09:34:00* Test Item Value Reference Range Interpretation Comments Basophils # (Auto) (test code = 704-7) 0.0 0.0-0.1 [facility] BudaAbsolute Immature Granulocyte (auto 2017-10-19 09:34:00* Test Item Value Reference Range Interpretation Comments Absolute Immature Granulocyte (auto (robert t code = Absolute Immature Granulocyte (auto) 0.02 0-0.1 [facility] BudaUrine [id number] 08:55:00* Test Item Value Reference Range Interpretation Comments Urine WBC (test code = 5821-4) NONE 0-5 [facility] BudaUrine [id number] 08:55:00* Test Item Value Reference Range Interpretation Comments Urine RBC (test code = 21307-6) NONE 0-5 [facility] BudaUrine Kzpswvvg4043-02-80 08:55:00* Test Item Value Reference Range Interpretation Comments Urine Bacteria (test code = 00541-4) NONE NONE [facility] BudaUrine Epithelial Ktydp4833-88-04 08:55:00 * Test Item Value Reference Range Interpretation Comments Urine Epithelial Cells (test code = 16790-7) RARE NONE [facility] BudaUrine Tkakm3556-92-13 08:50:00* Test Item Value Reference Range Interpretation Comments Urine Color (test code = 5778-6) YELLOW YELLOW [facility] BudaUrine Rwpadyj5736-14-49 08:50:00* Test Item Value Reference Range Interpretation Comments Urine Clarity (test code = 08168-0) SL CLOUDY CLEAR H [facility] BudaUrine Specific Yuirpze0520-31-50 08:50:00 * Test Item Value Reference Range Interpretation Comments Urine Specific [place] (test code = 5811-5) 1.015 1.010-1.02 5 [facility] BudaUrine [id number] 08:50:00* Test Item Value Reference Range Interpretation Comments Urine pH (test code = 30803-3) 6 5-7 [facility] BudaUrine Leukocyte Jrgvsksx9576-62-54 08:50:00* Test Item Value Reference Range Interpretation Comments Urine Leukocyte Esterase (test code = 5799-2) NEGATIVE NEGATIVE [facility] BudaUrine Euvabgc0032-74-12 08:50:00* Test Item Value Reference Range Interpretation Comments Urine Nitrite (test code = 74300-5) NEGATIVE NEGATIVE [facility] BudaUrine Njlyzza5207-51-95 08:50:00* Test Item Value Reference Range Interpretation Comments Urine Protein (test code = 5804-0) NEGATIVE NEGATIVE [facility] BudaUrine Glucose (UA)2017-10-19 08:50:00* Test Item Value Reference Range Interpretation Comments Urine Glucose (UA) (test code = 2349-9) NEGATIVE NEGATIVE [facility] BudaUrine Tkfvjwv6907-48-56 08:50:00* Test Item Value Reference Range Interpretation Comments Urine Ketones (test code = 75948-0) NEGATIVE NEGATIVE [facility] BudaUrine Ntnyxcltkmjo5641-64-23 08:50:00* Test Item Value Reference Range Interpretation Comments Urine Urobilinogen (test code = 85683-6) 0.2 0.2-1 [facility] BudaUrine Phdkwagqx2959-89-67 08:50:00* Test Item Value Reference Range Interpretation Comments Urine Bilirubin (test code = 1978-6) NEGATIVE NEGATIVE [facility] BudaUrine Ftgwa7750-99-97 08:50:00* Test Item Value Reference Range Interpretation Comments Urine Blood (test code = 64995-0) NEGATIVE NEGATIVE [facility] BudaNucleated Red Blood Bhgdl4885-87-59 16:23:00* Test Item Value Reference Range Interpretation Comments Nucleated Red Blood Cells (test code = 81085-6) 5 [facility] BudaPoikilocytosis2018-04-30 16:23:00* Test Item Value Reference Range Interpretation Comments Poikilocytosis (test code = 779-9) SLIGHT [facility] BudaCreatine Kinase [id number] 15:36:00* Test Item Value Reference Range Interpretation Comments Creatine Kinase MB (test code = 66925-8) 3.70 0-5.0 [facility] BudaTroponin [id number] 15:36:00* Test Item Value Reference Range Interpretation Comments Troponin I (test code = JWU9737) -0.001 0-0.300 [facility] BudaThyroid Stimulating Hormone (TSH) 2017-10-18 15:36:00* Test Item Value Reference Range Interpretation Comments Thyroid Stimulating Hormone (TSH) (test code = 68805-3) 0.354 0.350-4.940 [facility] BudaCreatine Vjhhbe0091-34-68 15:15:00* Test Item Value Reference Range Interpretation Comments Creatine Kinase (test code = 2157-6) 300 30-200 H [facility] BudaProthrombin Obaz5765-29-14 15:07:00* Test Item Value Reference Range Interpretation Comments Prothrombin Time (test code = 5902-2) 17.0 11.9-14.5 H [facility] BudaProthromb Time International Ratio 2017-10-18 15:07:00* Test Item Value Reference Range Interpretation Comments Prothromb Time International Ratio (test code = 6301-6) 1.50 Oral Anticoagulant Therapy INR Values:1. Low Intensity Therapy 1.5 - 2.02 . Moderate Intensity Therapy 2.0 - 3.03. High Intensity Therapy(1) 2.5 - 3. 54. High Intensity Therapy(2) 3.0 - 4.05. Panic Value INR > 5.0 [facility] BudaActivated Partial Thromboplast Time 2017-10-18 15:07:00* Test Item Value Reference Range Interpretation Comments Activated Partial Thromboplast Time (test code = 41522-4) 35.7 23.8-35.5 H [facility] BudaMagnesium Oeotb2551-23-92 06:52:00* Test Item Value Reference Range Interpretation Comments Magnesium Level (test code = 84110-0) 1.6 1.3-2.1 [facility] BudaTriglycerides Vxmsa9973-64-92 06:52:00* Test Item Value Reference Range Interpretation Comments Triglycerides Level (test code = 2571-8) 53 0-149 [facility] BudaCholesterol Rkidd5114-99-83 06:52:00* Test Item Value Reference Range Interpretation Comments Cholesterol Level (test code = 2093-3) 137 0-199 Less than 200 mg/dL Low Msrt263 - 239 mg/dL Borderline Hukp627 m g/dl and greater High Risk [facility] BudaLDL Zzxvjlvacfe6082-91-97 06:52:00* Test Item Value Reference Range Interpretation Comments LDL Cholesterol (test code = 25569-2) 55 60-130 L [facility] BudaHDL Deedksqowge2945-21-08 06:52:00* Test Item Value Reference Range Interpretation Comments HDL Cholesterol (test code = 2085-9) 71 40-60 H [facility] BudaCholesterol/HDL Gdlkr3030-70-18 06:52:00 * Test Item Value Reference Range Interpretation Comments Cholesterol/HDL Ratio (test code = 9830-1) 1.9 3.9-4.7 L [facility] BudaLactic Acid Gufyk9046-43-53 22:12:00* Test Item Value Reference Range Interpretation Comments Lactic Acid Level (test code = Lactic Acid Level) 15.6 4.5- 19.8 [facility] BudaAmmonia2017-07-22 22:12:00* Test Item Value Reference Range Interpretation Comments Ammonia (test code = 50300-7) 80 31-123 [facility] BudaAcetaminophen Dhdlw1315-08-77 20:18:00* Test Item Value Reference Range Interpretation Comments Acetaminophen Level (test code = 58302-4) -3 10-30 L [facility] BudaEthyl Alcohol Gvwwv7802-92-60 20:05:00* Test Item Value Reference Range Interpretation Comments Ethyl Alcohol Level (test code = 5643-2) 259.1 0.0-10.0 [facility]onalic[facility] Aeoyv1279-69-23 20:05:00* Test Item Value Reference Range Interpretation Comments Salicylates Level (test code = 4024-6) -5.0 0-30 [facility] BudaB-Type Natriuretic Wrbtukm1580-27-17 19:50:00* Test Item Value Reference Range Interpretation Comments B-Type Natriuretic Peptide (test code = 91789-4) 11.1 0-100 [facility]
[2020-01-22 22:12] LABS: CREATINE KINASE MB 2.7 ng/mL (0-5.0)
[2020-01-22 22:27] VITALS: BP 136/76
== END 2020-01-22 22:44 | disposition home or self-care (01) ==
LOC: ER 19:00
DX: R07.9 Chest pain, unspecified (principal); I10 Essential (primary) hypertension; E11.9 Type 2 diabetes mellitus without complications; K76.9 Liver disease, unspecified
CPT/HCPCS: 36415; 71045; 80053; 81001; 82550; 82553; 83880; 84484; 85025; 93005; 99284

== ENCOUNTER 2020-05-31 17:33 | Emergency (ER) | payer MEDICARE | END 2020-05-31 19:55 | disposition left against medical advice (07) | LOC: FSED 19:55 | DX: L03.90 Cellulitis, unspecified (principal) ==